=== PATIENT | female | born 1990 | race American Indian/Alaskan Native ===

== ENCOUNTER 2017-08-27 20:01 | Emergency (ER) | payer BC, OTHER ==
[2017-08-27 20:06] VITALS: BMI 29.0
[2017-08-27 20:11] VITALS: TEMP 98.4
--- NOTE | 2017-08-27 20:44 | ED PDOC ---
Arrival/HPI - General Chief Complaint: Female Genitourinary Time Seen by Provider: 08/27/17 20:21 Historian: Patient, Partner - History of Present Illness Narrative History of Present Illness (Text): you were treated in the ED today for being about 8wks with abdomen cramping, but otherwise without any nausea/vomiting/headache/dizziness/ difficulty breathing/chest pain/abdomen pain/numbness/tingling/loss of limb function/pain with urination/vaginal bleeding or discharge. refused sexual disease testing or treatment. 08/27/17 20:40 08/27/17 21:33 Time/Duration: > week (2) Symptom Onset: Gradual Symptom Course: Intermittent Quality: Aching, Cramping Severity Level: 1 Activities at Onset: Rest Context: Sitting Past Medical History - Provider Review Nursing Documentation Reviewed: Yes - Travel History Have you recently traveled outside [place] w/in the past 3 mons?: No - Cardiac Hx Cardiac Disorders: No - Pulmonary Hx Respiratory Disorders: No - Neurological Hx Neurological Disorder: No - HEENT Hx HEENT Disorder: No - Renal Hx Renal Disorder: No - Endocrine/Metabolic Hx Endocrine Disorders: No - Hematological/Oncological Hx Blood Disorders: No - Integumentary Hx Dermatological Disorder: No - Musculoskeletal/Rheumatological Hx Musculoskeletal Disorders: No - Genitourinary/Gynecological Hx Genitourinary Disorders: No - Psychiatric Hx Substance Use: No - Anesthesia Hx Anesthesia: No Family/Social History - Physician Review Nursing Documentation Reviewed: Yes Family/Social History: No Known Family HX Smoking Status: Never Smoked Hx Alcohol Use: Yes Frequency of alcohol use: Socially Hx Substance Use: No Allergies/Home Meds Allergies/Adverse Reactions: Allergies No Known Allergies Allergy (Verified 08/27/17 20:06) Home Medications: Home Meds Medication Instructions Recorded Confirmed No Known Home Med 08/27/17 08/27/17 Review of Systems - Review of Systems Constitutional: Normal Eyes: Normal ENT: Normal Respiratory: Normal Cardiovascular: Normal Gastrointestinal: Abdominal Pain Genitourinary Female: Normal Musculoskeletal: Normal Skin: Normal Neurological: Normal Endocrine: Normal Hemo/Lymphatic: Normal Psychiatric: Normal Physical Exam Vital Signs Reviewed: Yes Vital Signs Temp Pulse Resp BP Pulse Ox 08/27/17 20:10 98.4 F 86 19 124/61 97 08/27/17 20:07 98.4 F 86 19 124/61 97 Temperature: Afebrile Blood Pressure: Normal Pulse: Regular Respiratory Rate: Normal Appearance: Positive for: Well-Appearing, Non-Toxic, Comfortable Pain Distress: None Mental Status: Positive for: Alert and Oriented X 3 - Systems Exam Head: Present: Atraumatic, Normocephalic Pupils: Present: PERRL Extroacular Muscles: Present: EOMI Conjunctiva: Present: Normal Ears: Present: Normal Mouth: Present: Moist Mucous Membranes Pharnyx: Present: Normal Nose (External): Present: Atraumatic Nose (Internal): Present: Normal Inspection Neck: Present: Normal Range of Motion Respiratory/Chest: Present: Clear to Auscultation, Good Air Exchange Cardiovascular: Present: Regular Rate and Rhythm Abdomen: No: Tenderness, Distention, Normal Bowel Sounds, Peritoneal Signs, Rebound, Guarding, McBurney's Point Tender, Rovsing's Sign Present, Hernias, Feeding Tubes, Ostomy Tubes, Mass/Organomegaly, Scars, Other Back: Present: Normal Inspection Upper Extremity: Present: Normal Inspection Lower Extremity: Present: Normal Inspection Neurological: Present: GCS=15, CN II-XII Intact, Speech Normal, Motor Func Grossly Intact Skin: Present: Warm, Normal Color Psychiatric: Present: Alert, Oriented x 3, Normal Insight, Normal Concentration Medical Decision Making ED Course and Treatment: you were treated in the ED today for being about 8wks with abdomen cramping, but otherwise without any nausea/vomiting/headache/dizziness/ difficulty breathing/chest pain/abdomen pain/numbness/tingling/loss of limb function/pain with urination/vaginal bleeding or discharge. refused sexual disease testing or treatment. You were otherwise breathing easily, pink moist lips, smiling with your boyfriend and talking easily, good strength/sensation, alert/oriented, walking easily, clear lungs, no abdomen tenderness, refused pelvic exam and cautioned for missed diagnosis/complications but you wanted to have done at your primary care/obstetrics office, no fever temp 98.4, stable heart rate 86, stable breathing rate 19, excellent oxygen level 124/61% room air , elevated blood pressure 124/61 which we recommend repeat in 2-3 days primary care office to determine further treatment, you have blood tests no infection count 6, stable blood level hemoglobin 12/platelets 328, stable chemistry, urine test negative for infection, test 87,716, radiology ultrasound single live / heart rate 169, refused pain medication and observation done in the ED with improvement, counselled to bed rest till first clinic visit and thus discharged home with boyfriend. 1. Recommend tylenol as directed for pain. 2. Recommend drink lots of fluids. 3. Recommend follow-up primary care 1-2 days to review symptoms, referral to your obstetrics clinic/ gynecology clinic for uterine mass to ensure no complications/cancer development. 4. If any worsening pain, fever, chills, nausea, vomiting, difficulty breathing, numbness, loss of limb function, pain with urination or any medical condition then return to the ED. 08/27/17 20:42 08/27/17 21:21 08/27/17 21:33 08/27/17 22:15 08/27/17 22:17 08/27/17 22:45 - Lab Interpretations Lab Results: 08/27/17 20:54 08/27/17 20:54 Lab Results 08/27/17 20:54: Beta HCG, Quant 73724.00 H 08/27/17 20:54: Sodium 135, Potassium 3.5 L, Chloride 102, Carbon Dioxide 22, Anion Gap 14, BUN 5 L, Creatinine 0.6 L, Est GFR ( Amer) > 60, Est GFR ( Non-Af Amer) > 60, Random Glucose 87, Calcium 9.8, Total Bilirubin 0.3, AST 19, ALT 26, Alkaline Phosphatase 50, Total Protein 7.5, Albumin 4.0, Globulin 3.5, Albumin/Globulin Ratio 1.2 08/27/17 20:54: PT 12.5, INR 1.09 H, APTT 33.5 08/27/17 20:54: WBC 6.0, RBC 4.55, Hgb 12.4, Hct 38.3, MCV 84.2, MCH 27.3, MCHC 32.4, RDW 14.6 H, Plt Count 328, MPV 8.7, Gran % 61.2, Lymph % (Auto) 28.1, [place] % (Auto) 8.5 H, Eos % (Auto) 2.0, Baso % (Auto) 0.2, Gran # 3.68, Lymph # ( Auto) 1.7, [place] # (Auto) 0.5, Eos # (Auto) 0.1, Baso # (Auto) 0.01 08/27/17 20:45: Urine Color Yellow, Urine Appearance Clear, Urine pH 5.5, Ur Specific [place] >= 1.030, Urine Protein Negative, Urine Glucose (UA) Negative, Urine Ketones Negative, Urine Blood Negative, Urine Nitrate Negative, Urine Bilirubin Negative, Urine Urobilinogen 0.2, Ur Leukocyte Esterase Negative, Urine HCG, Qual Positive - RAD Interpretation Radiology Orders: 08/27/17 20:38 OB TRANSVAGINAL [US] Stat Disposition/Present on Arrival - Present on Arrival Any Indicators Present on Arrival: No History of DVT/PE: No History of Uncontrolled Diabetes: No Urinary Catheter: No History of Decub. Ulcer: No History Surgical Site Infection Following: None - Disposition Have Diagnosis and Disposition been Completed?: Yes Diagnosis: , Pain in the abdomen Disposition: HOME/ ROUTINE Disposition Time: 22:48 Patient Plan: Discharge Patient Problems: Current Active Problems Problem Status Onset Pain in the abdomen Acute Acute Condition: IMPROVED Additional Instructions: you were treated in the ED today for being about 8wks with abdomen cramping, but otherwise without any nausea/vomiting/headache/dizziness/ difficulty breathing/chest pain/abdomen pain/numbness/tingling/loss of limb function/pain with urination/vaginal bleeding or discharge. refused sexual disease testing or treatment. You were otherwise breathing easily, pink moist lips, smiling with your boyfriend and talking easily, good strength/sensation, alert/oriented, walking easily, clear lungs, no abdomen tenderness, refused pelvic exam and cautioned for missed diagnosis/complications but you wanted to have done at your primary care/obstetrics office, no fever temp 98.4, stable heart rate 86, stable breathing rate 19, excellent oxygen level 124/61% room air , elevated blood pressure 124/61 which we recommend repeat in 2-3 days primary care office to determine further treatment, you have blood tests no infection count 6, stable blood level hemoglobin 12/platelets 328, stable chemistry, urine test negative for infection, test 87,716, radiology ultrasound single live / heart rate 169, refused pain medication and observation done in the ED with improvement, counselled to bed rest till first clinic visit and thus discharged home with boyfriend. 1. Recommend tylenol as directed for pain. 2. Recommend drink lots of fluids. 3. Recommend follow-up primary care 1-2 days to review symptoms, referral to your obstetrics clinic/ gynecology clinic for uterine mass to ensure no complications/cancer development. 4. If any worsening pain, fever, chills, nausea, vomiting, difficulty breathing, numbness, loss of limb function, pain with urination or any medical condition then return to the ED. Referrals: Thanh Elliott, [Primary Care Provider] - Follow up with primary Forms: [employer] (Turkmen)
[2017-08-27 21:05] LABS: BASO # 0.01 K/mm3 (0.0-2.0); BASO % 0.2 % (0.0-3.0); EOS # 0.1 (0.0-0.7); GRAN # 3.68 (1.4-6.5); GRAN % 61.2 % (50.0-68.0); HEMOGLOBIN 12.4 g/dL (12.0-16.0); LYMPH # 1.7 (1.2-3.4); LYMPH % 28.1 % (22.0-35.0); MEAN CELL VOLUME 84.2 fl (80.0-105.0); MEAN CORPUSCULAR HEMOGLOBIN 27.3 pg (25.0-35.0); MEAN CORPUSCULAR HGB CONC 32.4 g/dl (31.0-37.0); MEAN PLATELET VOLUME 8.7 fl (7.0-11.0); MONO # 0.5 (0.1-0.6); MONO % 8.5 % (1.0-6.0); RBC 4.55 10^6/uL (3.5-6.1); RED CELL DISTRIBUTION WIDTH 14.6 % (11.5-14.5)
[2017-08-27 21:19] LABS: ALB/GLOB RATIO 1.2 (1.1-1.8); ALT/SGPT 26 U/L (7-56); AST/SGOT 19 U/L (14-36); BLOOD UREA NITROGEN 5 mg/dL (7-21); CALCIUM 9.8 mg/dL (8.4-10.5); GFR AFRICAN-AMERICAN > 60; GFR NON-AFRICAN AMERICAN > 60
[2017-08-27 21:26] LABS: PH,URINE 5.5 (4.7-8.0); URINE BILIRUBIN NEGATIVE (NEGATIVE); URINE BLOOD NEGATIVE (NEGATIVE); URINE GLUCOSE (UA) NEGATIVE (NEGATIVE); URINE LEUKOCYTE ESTERASE NEGATIVE Leu/uL (NEGATIVE); URINE NITRATE NEGATIVE (NEGATIVE); URINE PROTEIN NEGATIVE mg/dL (<30 mg/dL); URINE UROBILINOGEN 0.2 E.U./dL (<1 E.U./dL)
[2017-08-27 21:27] LABS: HCG,QUALITATIVE URINE POSITIVE (NEGATIVE); URINE APPEARANCE CLEAR (CLEAR); URINE COLOR YELLOW (YELLOW)
[2017-08-27 21:29] LABS: INR 1.09 (0.93-1.08); PARTIAL THROMBOPLASTIN TIME 33.5 Seconds (25.1-36.5); PROTHROMBIN TIME 12.5 SECONDS (9.4-12.5)
--- NOTE | 2017-08-27 22:43 | US ---
EXAM: US First Trimester, Transabdominal CLINICAL HISTORY: 26 years old, female; Pain; Other: Cramping; Gestational age or lmp: 07/03/2017; ; Additional info: 26yof, 8wks , who is having abd cramping TECHNIQUE: Real-time transabdominal obstetrical ultrasound of the maternal pelvis and a first trimester with image documentation. COMPARISON: No relevant prior studies available. FINDINGS: Gestation: Single live intrauterine gestation. heart rate of 169 beats per minute. Raymond-rump length of 1.9 cm, correlating with gestational age of 8 weeks 3 days. Uterus/cervix: 0.7 x 0.7 x 0.8 cm uterine mass. No subchorionic hemorrhage. No cervical dilatation or effacement. Ovaries: Normal ovaries. No adnexal masses. Free fluid: No significant free fluid. IMPRESSION: 1. Single live intrauterine gestation. 2. Probable fibroid. EXAM: US , Transvaginal CLINICAL HISTORY: 26 years old, female; Pain; Other: Cramping; Gestational age or lmp: 07/03/2017; ; Additional info: 26yof, 8wks , who is having abd cramping TECHNIQUE: Real-time transvaginal obstetrical ultrasound of the maternal pelvis and a first trimester with image documentation. Transvaginal imaging was used for better evaluation of the fetus and adnexa. COMPARISON: No relevant prior studies available. FINDINGS: Gestation: Single live intrauterine gestation. heart rate of 169 beats per minute. Raymond-rump length of 1.9 cm, correlating with gestational age of 8 weeks 3 days. Uterus/cervix: 0.7 x 0.7 x 0.8 cm uterine mass. No subchorionic hemorrhage. No cervical dilatation or effacement. Ovaries: Normal ovaries. No adnexal masses. Free fluid: No significant free fluid.
[2017-08-27 22:56] VITALS: BP 103/46; PULSE 67; RESP 18; O2SAT 100
== END 2017-08-27 23:24 | disposition home or self-care (01) ==
LOC: ED 20:01
DX: O26.891 Other specified pregnancy related conditions, first trimester (principal); R10.9 Unspecified abdominal pain; Z3A.08 8 weeks gestation of pregnancy

== ENCOUNTER 2017-09-24 19:45 | Emergency (ER) | payer BC ==
[2017-09-24 19:45] VITALS: BMI 29.0
[2017-09-24 20:22] VITALS: RESP 18; TEMP 97.9; O2SAT 100
[2017-09-24] MEDS ORDERED: DiphenhydrAMINE 12.5 mg/5 ml LIQ UD (5 ml) PO STA (20:28)
[2017-09-24] MEDS ORDERED: DiphenhydrAMINE 50 mg/ml Inj IVP ONE (20:28)
--- NOTE | 2017-09-24 20:39 | ED PDOC ---
Arrival/HPI - General Chief Complaint: Abnormal Skin Integrity Time Seen by Provider: 09/24/17 19:55 Historian: Patient - History of Present Illness Narrative History of Present Illness (Text): 09/24/17 20:34 Manasa Bermeo is a 26 year old female who presents to the emergency department for evaluation of generalized pruritic rash for the past week. Patient also with complains of slight tenderness to the right chest area under her breast, especially when touching the area. Patient unsure of what she may be possible allergic to. Patient denies any shortness of breath, trauma, fevers , chills, cough, or any other complaints at this time. Time/Duration: 1 week Symptom Onset: Gradual Symptom Course: Unchanged Activities at Onset: Light Context: Home Past Medical History - Provider Review Nursing Documentation Reviewed: Yes - Cardiac Hx Cardiac Disorders: No - Pulmonary Hx Respiratory Disorders: No - Neurological Hx Neurological Disorder: No - HEENT Hx HEENT Disorder: No - Renal Hx Renal Disorder: No - Endocrine/Metabolic Hx Endocrine Disorders: No - Hematological/Oncological Hx Blood Disorders: No - Integumentary Hx Dermatological Disorder: No - Musculoskeletal/Rheumatological Hx Musculoskeletal Disorders: No - Genitourinary/Gynecological Hx Genitourinary Disorders: No - Psychiatric Hx Substance Use: No - Anesthesia Hx Anesthesia: No Family/Social History - Physician Review Nursing Documentation Reviewed: Yes Family/Social History: No Known Family HX Smoking Status: Never Smoked Hx Alcohol Use: Yes Hx Substance Use: No Allergies/Home Meds Allergies/Adverse Reactions: Allergies No Known Allergies Allergy (Verified 09/24/17 20:03) Review of Systems - Physician Review All systems were reviewed & negative as marked: Yes - Review of Systems Constitutional: absent: Fevers, Night Sweats Eyes: absent: Vision Changes, Photophobia ENT: absent: Hearing Changes Respiratory: absent: SOB, Cough Gastrointestinal: absent: Abdominal Pain Genitourinary Female: absent: Dysuria Musculoskeletal: absent: Arthralgias Skin: Rash, Pruritis Neurological: absent: Headache, Dizziness Endocrine: absent: Diaphoresis Hemo/Lymphatic: absent: Adenopathy Psychiatric: absent: Anxiety, Depression Physical Exam Vital Signs Reviewed: Yes Vital Signs Temp Pulse Resp BP Pulse Ox 09/24/17 20:04 97.9 F 96 H 18 149/82 100 Temperature: Afebrile Blood Pressure: Normal Pulse: Tachycardic Respiratory Rate: Normal Appearance: Positive for: Well-Appearing, Non-Toxic, Comfortable Pain Distress: None Mental Status: Positive for: Alert and Oriented X 3 - Systems Exam Head: Present: Atraumatic, Normocephalic Pupils: Present: PERRL Extroacular Muscles: Present: EOMI Conjunctiva: Present: Normal Mouth: Present: Moist Mucous Membranes Neck: Present: Normal Range of Motion Respiratory/Chest: Present: Tender to Palpation (Mild tenderness to palpation to right area of chest wall under breast) Cardiovascular: Present: Regular Rate and Rhythm, Normal S1, S2. No: Murmurs Abdomen: Present: Normal Bowel Sounds. No: Tenderness, Distention, Peritoneal Signs Back: Present: Normal Inspection Upper Extremity: Present: Normal Inspection. No: Cyanosis, Edema Lower Extremity: Present: Normal Inspection. No: Edema Neurological: Present: GCS=15, CN II-XII Intact, Speech Normal Skin: Present: Rashes (diffusely scattered papular urticarial rash to the thorax and extremities) Psychiatric: Present: Alert, Oriented x 3, Normal Insight, Normal Concentration Medical Decision Making ED Course and Treatment: 09/24/17 20:42 Impression: 26 year old female complaining of generalized pruritic rash for the past week. Plan: -- Benadryl -- Solu-medrol -- Reassess and disposition Prior Visits: Notes and results from previous visits were reviewed. Patient was last seen in the emergency department on 08/27/17 for abdomen cramping. Patient was discharged home. Progress Notes: - Medication Orders Current Medication Orders: Discontinued Medications Diphenhydramine HCl (Benadryl) 25 mg IVP ONCE ONE Stop: 09/24/17 20:29 Last Admin: 09/24/17 22:18 Dose: 25 mg IVP Administration Document 09/24/17 22:18 CNR (Rec: 09/24/17 22:18 CNR [id number]) Charges for Administration # of IVP Administrations 1 Diphenhydramine HCl (Benadryl) 25 mg PO ONCE STA Stop: 09/24/17 20:29 Last Admin: 09/24/17 21:47 Dose: 25 mg Methylprednisolone (Solu-Medrol) 125 mg IVP ONCE ONE Stop: 09/24/17 20:31 Last Admin: 09/24/17 22:18 Dose: 125 mg IVP Administration Document 09/24/17 22:18 CNR (Rec: 09/24/17 22:18 CNR [id number]) Charges for Administration # of IVP Administrations 1 - Scribe Statement The provider has reviewed the documentation as recorded by the Scribe Neena Hannah Provider Scribe Attestation: All medical record entries made by the Scribe were at my direction and personally dictated by me. I have reviewed the chart and agree that the record accurately reflects my personal performance of the history, physical exam, medical decision making, and the department course for this patient. I have also personally directed, reviewed, and agree with the discharge instructions and disposition. Disposition/Present on Arrival - Present on Arrival Any Indicators Present on Arrival: No History of DVT/PE: No History of Uncontrolled Diabetes: No Urinary Catheter: No History of Decub. Ulcer: No History Surgical Site Infection Following: None - Disposition Have Diagnosis and Disposition been Completed?: Yes Diagnosis: Allergic reaction, Musculoskeletal chest pain Disposition: HOME/ ROUTINE Disposition Time: 23:05 Patient Plan: Discharge Condition: GOOD Discharge Instructions (ExitCare): Chest Pain (ED), Allergy Skin Testing Additional Instructions: Take meds as prescribed/follow up with your doctor this week Prescriptions: DiphenhydrAMINE [Benadryl] 50 mg PO Q6 PRN #12 cap PRN Reason: Itching / Pruritus predniSONE [Prednisone] 40 mg PO DAILY #10 tab Referrals: Richard Frank MD [Staff Provider] - Follow up with primary Forms: [facility] ([place]an)
[2017-09-24 23:10] VITALS: BP 133/87; PULSE 81
--- NOTE | 2017-09-25 09:18 | CARD ---
APPROVED REPORT EKG Measurement Heart [id number] <Conclusion> Normal sinus rhythm Normal ECG
== END 2017-09-24 23:10 | disposition home or self-care (01) ==
LOC: ED 19:45
DX: T78.49XA Other allergy, initial encounter (principal); X58.XXXA Exposure to other specified factors, initial encounter; M79.1 Myalgia
CPT/HCPCS: 93005; 96374; 96375; 99283; J1200; J2930